=== PATIENT | female | born 1995 | race Caucasian/White ===

== ENCOUNTER → 2016-09-21 | Outpatient (REF) | payer OTHER ==
[2016-09-21 15:57] LABS: FREE T4 1.06 NG/DL (0.78-1.33)
[2016-09-21 16:07] LABS: THYROID PEROXIDASE ANTIBODY < 28.0 U/ML (<60.0)
== END | disposition home or self-care (01) ==
LOC: M SFHCPLAZ 14:11
PROVIDERS: ATTEND Nurse Practitioner Family
DX: R79.89 Other specified abnormal findings of blood chemistry (principal)

== ENCOUNTER → 2016-11-12 | Outpatient (CLI) | payer OTHER ==
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
== END ==
LOC: M RAD 08:07
PROVIDERS: ATTEND Family Medicine
DX: M54.5 Low back pain (principal)

== ENCOUNTER 2016-12-10 12:54 | Inpatient (IN) | payer OTHER ==
[~2016-12-10] VITALS: Ht 167.6 cm; Wt 65.2 kg
[2016-12-10 15:17] LABS: MEAN CORPUSCULAR HEMOGLOBIN 30.4 pg (27.0-33.0); MEAN CORPUSCULAR HGB CONC 33.6 g/dl (32.0-36.5); MEAN CORPUSCULAR VOLUME 90.6 fl (80.0-96.0); RED CELL DISTRIBUTION WIDTH 12.4 % (11.5-14.5); WHITE BLOOD COUNT 8.9 K/mm3 (4.0-10.0)
[2016-12-10 15:42] LABS: CONTROL LINE HCG INT CTR LINE PRESENT
[2016-12-10 15:50] LABS: METHADONE URINE NEGATIVE (NEGATIVE)
[2016-12-10 16:01] LABS: ALBUMIN 4.2 GM/DL (3.2-5.2); ALBUMIN/GLOBULIN RATIO 1.35 (1.00-1.93); ALKALINE PHOSPHATASE 71 U/L (45-117); ALT/SGPT 20 U/L (12-78); ANION GAP 9 MEQ/L (8-16); AST/SGOT 9 U/L (15-37); BILIRUBIN,DIRECT 0.1 MG/DL (0.0-0.2); BILIRUBIN,TOTAL 0.5 MG/DL (0.2-1.0); BLOOD UREA NITROGEN 12 MG/DL (7-18); CALCIUM LEVEL 9.2 MG/DL (8.5-10.1); CARBON DIOXIDE LEVEL 26 MEQ/L (21-32); CHLORIDE LEVEL 106 MEQ/L (98-107); CREATININE FOR GFR 0.77 MG/DL (0.55-1.02); GLUCOSE, FASTING 76 MG/DL (70-105); POTASSIUM SERUM 3.7 MEQ/L (3.5-5.1); SODIUM LEVEL 141 MEQ/L (136-145); TOTAL PROTEIN 7.3 GM/DL (6.4-8.2)
[2016-12-10 20:40] VITALS: BP 113/60
[2016-12-10] MEDS ORDERED: traZODone 50 MG TAB PO PRN (23:00)
[2016-12-10] MEDS ORDERED: MOM 30ML SUSPENSION UDC PO PRN (23:00)
[2016-12-10] MEDS ORDERED: ACETAMINOPHEN TAB 650MG DOSE (2X325MG) PO PRN (23:00)
[2016-12-10] MEDS ORDERED: MAALOX 30 ML SUSP *UDC PO PRN (23:00)
[2016-12-11] MEDS: LORazepam 1 MG TAB PO PRN (04:57)
[2016-12-11 06:19] VITALS: BP 96/52
--- NOTE | 2016-12-11 09:31 | HPEPDOC ---
Medical History and Physical Date of Admission December 10, 2016 at 17:26 History and Physical PCP: Sridhar Cano NP ATTENDING: Dr. Mainor Toussaint HPI: 21yoF admitted to [facility] for unspecified psychotic disorder, being medically examined today. Patient states she has been having chronic low back pain. She denies any radiation of pain down her legs. Sometimes her legs feel weak. She has not had any falls. She states sometimes she has numbness and tingling in her feet and hands. No complaint of neck pain. No weakness in upper extremities. No loss of bowel or bladder control. She states CT scan of the lumbosacral spine was completed at [place]. She typically uses Tylenol or ibuprofen for the pain. Denies any fevers, chills, weakness, fatigue, LAM, CP, SOB, cough, palpitations, abdominal pain, N/V/D or changes in bowel or bladder habits. PMHx: Reduced hearing. Patient states she does not wear hearing aids. Chronic low back pain Depression Anxiety PTSD PSHX: Denies SOCHX: Resides in: [place] Marital Status: Kids: None. Patient states they are attempting to get custody of her 's 13- year-old sister who is living with them. Employment: Unemployed Tobacco use: One per day ETOH: Denies Illicit Drugs: Marijuana every other day IV Drug Use: Denies Tattoos done unprofessionally: Denies FAMHX: Mother: Alive, well Father: Alive, hypertension Siblings: One brother Alive, well Children: None Unexpected deaths due to medical reasons: None. ROS: As noted in HPI, otherwise 11pt ROS of systems reviewed and remarkable only for LMP 11/14/16. PE: GEN: 21 yo F, appears stated age. Well-nourished, well developed. No acute distress. Alert and oriented x 3. Pleasant, interactive. HEENT: Normocephalic, atraumatic. Pupils are equal, round, and reactive to light. Extraocular movements are intact. No nystagmus appreciated. Sclera are nonicteric. Conjunctiva without injection. Nose midline. Nasal turbinates without bogginess. EACs both patent BL. TMs both visualized and koch with good cone of light, no bulging or erythema. No facial asymmetry. Moist mucous membranes. Dentition fair. Pharynx pink and moist, no cobblestoning. Neck supple , trachea midline. No lymphadenopathy or thyromegaly appreciated. CHEST: Regular rate and rhythm, +S1, +S2 LUNGS: Clear to auscultation bilaterally. No wheezes, rales, or rhonchi. Breathing appears symmetric and easy. Patient is speaking in full sentences. No accessory muscle use. ABD: Round, soft, non-tender, non-distended. +Bowel sounds throughout. No rebound or guarding. No costovertebral angle tenderness. EXT: Pulses 2+ bilaterally dorsalis pedis and radial. No lower extremity edema appreciated. SKIN: [place], dry, warm. Capillary refill <2sec. No rashes. NEURO: Alert and oriented x 3. Cranial nerves III-XII are intact. No focal deficits appreciated. EKG: Pending. A&P: 21yoF admitted to [facility] for unspecified psychotic disorder 1. Psych. Plan per Psychiatry. Obtain baseline EKG to assure the safety of psychiatric medications as they can prolong the QT interval. 2. Nicotine dependence. Patch available. 3. Chronic low back pain. Continue Tylenol as needed. Request copy of CT scan of lumbosacral spine from [place]. 4. Follow up with PCP on discharge. 5. Substance use. Per psychiatry. 6. Abnormal TSH. Recheck TFTs. Thyroid peroxidase antibody within normal limits 09/21/16. Request Thyroid U/S. Oupt referral to Endocrinology. 7. Staff member Jo MCKEON present throughout exam. Vital Signs Vital Signs Date Time Temp Pulse Resp B/P (MAP) Pulse Ox O2 Delivery O2 Flow Rate FiO2 12/11/16 06:19 99.1 75 16 96/52 (67) 12/10/16 20:40 98 Room Air Laboratory Data Labs 24H Laboratory Tests 2 12/10/16 15:05: Anion Gap 9, Calcium Level 9.2, Aspartate Amino Transf (AST/SGOT) 9L, Alanine Aminotransferase (ALT/SGPT) 20, Alkaline Phosphatase 71, Total Bilirubin 0.5, Direct Bilirubin 0.1, Total Protein 7.3, Albumin 4.2, Albumin/Globulin Ratio 1.35, Thyroid Stimulating Hormone (TSH) 0.426L, Human Chorionic Gonadotropin, Qual NEGATIVE, Salicylates Level < 1.7L, Urine Amphetamines Screen NEGATIVE, Urine Benzodiazepines Screen NEGATIVE, Urine Opiates Screen NEGATIVE, Urine Methadone Screen NEGATIVE, Acetaminophen Level < 2.0L, Urine Barbiturates Screen NEGATIVE, Urine Phencyclidine Screen NEGATIVE, Urine Cocaine Metabolite Screen NEGATIVE, Urine Cannabinoids Screen POSITIVEH, Ethyl Alcohol Level < 0.003 CBC/BMP Laboratory Tests 12/10/16 15:05 Red Blood Count 4.38, Mean Corpuscular Volume 90.6, Mean Corpuscular Hemoglobin 30.4, Mean Corpuscular Hemoglobin Concent 33.6, Red Cell Distribution Width 12.4 Home Medications No Active Prescriptions or Reported Meds Allergies Coded Allergies: No Known Allergies (Unverified , 12/10/16) Marina Jauregui December 11, 2016 09:31
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
[2016-12-11 12:50] VITALS: BP 120/75
[2016-12-11] MEDS: DIVALPROEX 250MG *ER* TAB PO SCH ×2 (12:51→20:28)
[2016-12-11] MEDS: busPIRone 10 MG TAB PO SCH ×3 (12:51→20:28)
[2016-12-11] MEDS: SERTRALINE HCL 50 MG TAB PO SCH (12:51)
[2016-12-11] MEDS: hydrOXYzine 25 MG TAB PO PRN ×2 (15:52→21:42)
[2016-12-11 18:19] VITALS: BP 129/69
--- NOTE | 2016-12-11 19:08 | REP ---
Thyroid sonography: History: Abnormal thyroid function tests. Sonographic findings: The thyroid isthmus is normal measuring 0.3 cm in greatest thickness. Right lobe dimensions are 3.8 x 1.6 x 1.2 cm. The left lobe measures 3.8 x 1.4 x 0.8 cm. These values are felt to be normal. No thyroid nodule mass or cyst is seen. No extrathyroidal adenopathy is observed. Impression: Normal soft tissue thyroid sonography. Signed by Eldon Cheek MD 12/12/2016 08:06 A
--- NOTE | 2016-12-11 19:12 | ECGEPIP ---
Stationary ECG Study [facility] Test Date: 2016-12-11 Pat Name: BENITA WEST Department: Room: [place] [address] Gender: F Computer Technologist: KAYLA : 1995 Requested By: Marina Jauregui Order Number: [id number] Reading MD: Awais Valderrama Measurements Intervals [place] Rate: 72 P: 50 ID: [id number] QRS: 16 QRSD: 91 T: 50 QT: 383 QTc: 419 Interpretive Statements SINUS RHYTHM WITH SINUS ARRHYTHMIA NO PRIOR Electronically Signed On 12-11-2016 19:12:17 EDT by Awais Valderrama
[2016-12-12 06:39] VITALS: BP 118/93
[2016-12-12] MEDS ORDERED: HYDR25T PO (08:26)
[2016-12-12] MEDS ORDERED: SERT50TA PO (08:26)
[2016-12-12] MEDS ORDERED: TRAZO50TA PO (08:26)
[2016-12-12] MEDS ORDERED: DEPA250T2 PO (08:26)
[2016-12-12] MEDS ORDERED: BUSP10TA PO (08:26)
[2016-12-12] MEDS: SERTRALINE HCL 50 MG TAB PO SCH (08:56)
[2016-12-12] MEDS: DIVALPROEX 250MG *ER* TAB PO SCH (08:56)
[2016-12-12] MEDS: busPIRone 10 MG TAB PO SCH (08:56)
[2016-12-12] MEDS: hydrOXYzine 25 MG TAB PO PRN (10:17)
[2016-12-12] MEDS: LORazepam 1 MG TAB PO PRN (11:40)
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
== END 2016-12-12 11:45 | disposition home or self-care (01) | DRG 880 ==
LOC: M ED 15:16 → M ED INP 17:26 → M PSY 20:17
PROVIDERS: ADMIT Psychiatry & Neurology Psychiatry; ATTEND Psychiatry & Neurology Psychiatry
DX: F41.1 Generalized anxiety disorder (principal); F12.10 Cannabis abuse, uncomplicated; F17.210 Nicotine dependence, cigarettes, uncomplicated; M54.5 Low back pain; H91.93 Unspecified hearing loss, bilateral; Z81.8 Family history of other mental and behavioral disorders; Z62.810 Personal history of physical and sexual abuse in childhood

== ENCOUNTER 2017-09-09 07:39 | Emergency (ER) | payer BC, OTHER ==
[2017-09-09] MEDS: ACETAMINOPHEN 325 MG TAB PO (08:08)
[2017-09-09] MEDS: ONDANSETRON 4 MG ORAL DISINTEGRATING TAB (S0181) PO (08:13)
[2017-09-09 09:12] LABS: INFLUENZA A AMPLIFICATION NEGATIVE (NEGATIVE); INFLUENZA B AMPLIFICATION NEGATIVE (NEGATIVE)
== END 2017-09-09 09:30 | disposition home or self-care (01) ==
LOC: M ED 07:39
DX: R51 Headache (principal); J06.9 Acute upper respiratory infection, unspecified; I10 Essential (primary) hypertension; F41.9 Anxiety disorder, unspecified; F33.9 Major depressive disorder, recurrent, unspecified
CPT/HCPCS: 87502

== ENCOUNTER → 2017-09-12 | Outpatient (CLI) | payer BC, OTHER ==
[2017-09-12 14:57] LABS: BASO % 0.4 % (0.0-1.0); EOS % 0.3 % (0.0-3.0); HEMATOCRIT 41.6 % (36.0-47.0); IMMATURE GRANULOCYTE % 0.3 % (0-3.0); LYMPH # 1.6 10^3/uL (1.5-6.5); LYMPH % 22.9 % (24.0-44.0); MEAN CORPUSCULAR HEMOGLOBIN 29.3 pg (27.0-33.0); MEAN CORPUSCULAR HGB CONC 33.7 g/dl (32.0-36.5); MONO # 0.6 10^3/uL (0.0-0.8); MONO % 8.9 % (0.0-5.0); NEUTROPHILS # 4.5 10^3/uL (1.8-7.7); NEUTROPHILS % 67.2 % (36.0-66.0); PLATELET COUNT, AUTOMATED 248 10^3/uL (150-450); RED BLOOD COUNT 4.78 10^6/uL (4.00-5.40); WHITE BLOOD COUNT 6.8 10^3/uL (4.0-10.0)
[2017-09-12 15:34] LABS: ALBUMIN 4.1 GM/DL (3.2-5.2); ALBUMIN/GLOBULIN RATIO 0.95 (1.00-1.93); ALKALINE PHOSPHATASE 72 U/L (45-117); ALT/SGPT 16 U/L (12-78); ANION GAP 7 MEQ/L (8-16); AST/SGOT 15 U/L (7-37); BILIRUBIN,TOTAL 0.4 MG/DL (0.2-1.0); BLOOD UREA NITROGEN 15 MG/DL (7-18); CALCIUM LEVEL 9.3 MG/DL (8.5-10.1); CARBON DIOXIDE LEVEL 28 MEQ/L (21-32); CHLORIDE LEVEL 105 MEQ/L (98-107); CREATININE FOR GFR 0.89 MG/DL (0.55-1.30); FREE T4 1.25 NG/DL (0.78-1.33); GLUCOSE, FASTING 84 MG/DL (70-100); POTASSIUM SERUM 3.9 MEQ/L (3.5-5.1); SODIUM LEVEL 140 MEQ/L (136-145); THYROID STIMULATING HORMONE 0.397 uIU/ML (0.463-3.98); TOTAL PROTEIN 8.4 GM/DL (6.4-8.2)
== END ==
LOC: M LAB 14:16
DX: Z00.00 Encounter for general adult medical examination without abnormal findings (principal); F32.9 Major depressive disorder, single episode, unspecified; F41.9 Anxiety disorder, unspecified; R79.89 Other specified abnormal findings of blood chemistry